=== PATIENT | male | born 1960 | race Caucasian/White ===

== ENCOUNTER 2018-05-12 22:54 | Emergency (ER) | payer MEDICARE, OTHER ==
[~2018-05-12] VITALS: Wt 82.9 kg
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
[2018-05-13] MEDS ORDERED: DIPHTH/TET/ACEL PERTUSS (ADULT) 0.5 ML VIAL IM* ONE (00:30)
[2018-05-13 03:42] VITALS: BP 134/77; PULSE 87; RESP 19
== END 2018-05-13 03:48 | disposition home or self-care (01) ==
LOC: E/R 22:54
DX: S02.2XXA Fracture of nasal bones, initial encounter for closed fracture (principal); S01.311A Laceration without foreign body of right ear, initial encounter; S05.11XA Contusion of eyeball and orbital tissues, right eye, initial encounter; Y04.8XXA Assault by other bodily force, initial encounter; Z23 Encounter for immunization
CPT/HCPCS: 70450; 70486; 72125; 90471; 90715